=== PATIENT | female | born 1985 | race Caucasian/White ===

== ENCOUNTER 2022-11-02 05:16 | Inpatient (IN) | payer MEDICARE, OTHER ==
[~2022-11-02] VITALS: Ht 165.1 cm; Wt 132.0 kg
[2022-11-02 09:59] LABS: Basophils # (auto) 0.1 10 ^3/uL (0-0.2); Eosinophils # (auto) 0.2 10 ^3/uL (0-0.8); Hematocrit 39.8 % (36.0-46.0); Hemoglobin 12.9 g/dL (12.2-16.2); Lymphocytes # (auto) 1.9 10 ^3/uL (0.4-5.4); Lymphocytes % (auto) 15.4 % (10.0-50.0); Mean Corpuscular Hemoglobin 26.4 pg (28.0-32.0); Mean Corpuscular Hgb Conc. 32.4 g/dL (32.0-36.0); Mean Corpuscular Volume 81.4 fL (80.0-100.0); Monocytes # (auto) 0.8 10 ^3/uL (0-1.3); Monocytes % (auto) 6.2 % (0.0-12.0); Neutrophils # (auto) 9.3 10 ^3/uL (1.6-8.6); Neutrophils % (auto) 75.4 % (37.0-80.0); Nucleated Red Blood Cells % 0.1 %; Red Blood Cells 4.89 10^6/uL (4.0-5.20); Red Cell Distribution Width 15.3 % (11.8-14.3); White Blood Cell 12.3 10^3/uL (4.4-10.8)
[2022-11-02 10:14] LABS: Albumin 3.4 g/dL (3.4-5.0); Calcium 9.1 mg/dL (8.5-10.1); Potassium 3.2 mmol/L (3.5-5.1)
[2022-11-02 10:17] LABS: BUN/Creatinine Ratio 9.2 (10.0-20.0); Bilirubin, Total 0.4 mg/dL (0.2-1.0); Total Protein 7.5 g/dL (6.4-8.2)
[2022-11-02] MEDS: LACTATED RINGER'S 1,000 ML IV SCH ×2 (11:15→22:02)
[2022-11-02] MEDS ORDERED: ACETAMINOPHEN 325 MG TAB PO PRN (11:15)
[2022-11-02] MEDS ORDERED: SODIUM CHLORIDE 0.9% 1,000 ML IV ONE (11:15)
[2022-11-02] MEDS ORDERED: POTASSIUM CHL 20MEQ/100ML 100 ML IV ONE (11:15)
[2022-11-02] MEDS ORDERED: ONDANSETRON HCL 4 MG/2 ML VIAL IV PRN (11:15)
[2022-11-02] MEDS ORDERED: HYDROcodone-ACET 5/325MG TAB PO PRN (11:15)
[2022-11-02 11:33] LABS: Cholesterol 176 mg/dL (< 200)
[2022-11-02 11:36] LABS: HDL Cholesterol 42 mg/dL (40-59); LDL Cholesterol 126 mg/dL (< 100); Triglycerides 77 mg/dL (< 150)
[2022-11-02 11:44] LABS: INR 0.97 (0.9-1.15); Partial Thromboplastin Time 31.8 sec (24.6-33.4)
[2022-11-02] MEDS ORDERED: NICOTINE 7MG/24HR TOPICAL PATCH TD ONE (13:00)
[2022-11-02] MEDS ORDERED: DEXTROSE (50%) 50ML SYRG IV PRN (13:00)
[2022-11-02] MEDS ORDERED: LURA40TA PO (13:07)
[2022-11-02] MEDS ORDERED: SERT25TA14 PO (13:07)
[2022-11-02] MEDS ORDERED: hydrALAZINE HCL 20 MG/ML VL IV PRN (13:15)
[2022-11-02] MEDS: ACCU-CHEK COMFORT CURVE STRIP VI SCH ×2 (18:49→23:55)
[2022-11-02] MEDS: InsuLIN REG 1unit/0.01ml Soln (100units/ml) SC SCH ×2 (18:49→23:55)
[2022-11-02] MEDS: PANTOPRAZOLE 40 MG/10 ML VIAL INJ IV SCH ×2 (18:52→23:25)
[2022-11-02 19:14] LABS: Cholesterol 159 mg/dL (< 200)
[2022-11-02 19:16] LABS: HDL Cholesterol 36 mg/dL (40-59); LDL Cholesterol 119 mg/dL (< 100); Triglycerides 94 mg/dL (< 150)
[2022-11-02] MEDS: MORPHINE SULFATE INJ 2 MG/ml SYRG IV PRN (19:49)
[2022-11-03] MEDS: LACTATED RINGER'S 1,000 ML IV SCH ×3 (03:15→19:15)
[2022-11-03] MEDS: InsuLIN REG 1unit/0.01ml Soln (100units/ml) SC SCH ×3 (06:42→18:00)
[2022-11-03] MEDS: ACCU-CHEK COMFORT CURVE STRIP VI SCH ×3 (06:42→18:16)
[2022-11-03] MEDS ORDERED: MIDAZOLAM HCL 2MG/2ML 2ml VIAL (1mg/ml) ONE (09:43)
[2022-11-03] MEDS ORDERED: PROPOFOL 10 MG/ML 20 ML IV ONE (10:03)
[2022-11-03] MEDS ORDERED: fentaNYL CITRATE 100 MCG/2 ML VL ONE (10:03)
[2022-11-03] MEDS ORDERED: ONDANSETRON HCL 4 MG/2 ML VIAL IV PRN (10:15)
[2022-11-03] MEDS ORDERED: MORPHINE SULFATE INJ 2 MG/ml SYRG IV ONE (10:39)
[2022-11-03 12:55] VITALS: BP 117/73
[2022-11-03 13:59] VITALS: BP 117/73
[2022-11-03] MEDS: SERTRALINE HCL 50 MG TAB PO SCH (14:00)
[2022-11-03] MEDS: PANTOPRAZOLE 40 MG/10 ML VIAL INJ IV SCH ×2 (14:00→23:17)
[2022-11-03] MEDS ORDERED: ASCO500T11 PO (14:03)
[2022-11-03] MEDS: NICOTINE 7MG/24HR TOPICAL PATCH TD SCH (14:03)
[2022-11-03] MEDS ORDERED: METF-370 PO (14:03)
[2022-11-03] MEDS ORDERED: LORA1TAB23 PO (14:03)
[2022-11-03] MEDS ORDERED: AMLO-489 PO (14:03)
[2022-11-03] MEDS: LURASIDONE HYDROCHLORIDE 40 MG PO SCH (15:08)
[2022-11-03] MEDS: MORPHINE SULFATE INJ 2 MG/ml SYRG IV PRN ×2 (15:19→20:10)
[2022-11-03 16:00] VITALS: BP 114/54
[2022-11-03 22:00] VITALS: BP 140/82
[2022-11-04] MEDS: LACTATED RINGER'S 1,000 ML IV SCH (03:15)
[2022-11-04] MEDS: MORPHINE SULFATE INJ 2 MG/ml SYRG IV PRN (04:17)
[2022-11-04 05:00] VITALS: BP 135/76
[2022-11-04] MEDS: ACCU-CHEK COMFORT CURVE STRIP VI SCH ×4 (06:00→17:41)
[2022-11-04] MEDS: InsuLIN REG 1unit/0.01ml Soln (100units/ml) SC SCH ×4 (06:00→17:41)
[2022-11-04 09:00] VITALS: BP 150/88
[2022-11-04] MEDS: NICOTINE 7MG/24HR TOPICAL PATCH TD SCH (10:42)
[2022-11-04] MEDS: PANTOPRAZOLE 40 MG/10 ML VIAL INJ IV SCH ×2 (10:45→22:11)
[2022-11-04] MEDS: SERTRALINE HCL 50 MG TAB PO SCH (10:45)
[2022-11-04] MEDS: LURASIDONE HYDROCHLORIDE 40 MG PO SCH (10:46)
[2022-11-04] MEDS: diphenhdrAMINE HCL 50 MG/1 ML VL IV PRN ×2 (10:50→17:32)
[2022-11-04] MEDS: MORPHINE SULFATE 4 MG/ML SYR/VIAL IV PRN ×3 (10:52→22:12)
[2022-11-04 13:00] VITALS: BP 145/91
[2022-11-04 17:00] VITALS: BP_SYST 121; BP_SYST 150; BP_DIAS 76; BP_DIAS 88
[2022-11-04 22:00] VITALS: BP 139/71
[2022-11-05] MEDS: ACCU-CHEK COMFORT CURVE STRIP VI SCH ×4 (00:11→17:36)
[2022-11-05] MEDS: diphenhdrAMINE HCL 50 MG/1 ML VL IV PRN ×4 (00:12→18:12)
[2022-11-05 05:00] VITALS: BP 135/69
[2022-11-05] MEDS: MORPHINE SULFATE 4 MG/ML SYR/VIAL IV PRN ×5 (05:00→23:16)
[2022-11-05] MEDS: InsuLIN REG 1unit/0.01ml Soln (100units/ml) SC SCH ×4 (05:08→17:36)
[2022-11-05 09:00] VITALS: BP 124/77
[2022-11-05] MEDS: PANTOPRAZOLE 40 MG/10 ML VIAL INJ IV SCH ×2 (09:19→23:14)
[2022-11-05] MEDS: SERTRALINE HCL 50 MG TAB PO SCH (09:25)
[2022-11-05] MEDS: NICOTINE 7MG/24HR TOPICAL PATCH TD SCH (09:26)
[2022-11-05] MEDS: LURASIDONE HYDROCHLORIDE 40 MG PO SCH (09:26)
[2022-11-05 13:00] VITALS: BP 118/68
[2022-11-05 17:00] VITALS: BP 126/68
[2022-11-05] MEDS: DOCUSATE SOD 100 MG CAP PO SCH (23:14)
[2022-11-06] MEDS: ACCU-CHEK COMFORT CURVE STRIP VI SCH ×4 (01:06→18:10)
[2022-11-06] MEDS: diphenhdrAMINE HCL 50 MG/1 ML VL IV PRN ×4 (01:07→23:17)
[2022-11-06] MEDS: InsuLIN REG 1unit/0.01ml Soln (100units/ml) SC SCH ×4 (06:00→18:00)
[2022-11-06 08:37] VITALS: BP 138/69
[2022-11-06] MEDS: MORPHINE SULFATE 4 MG/ML SYR/VIAL IV PRN (08:52)
[2022-11-06] MEDS: DOCUSATE SOD 100 MG CAP PO SCH (08:53)
[2022-11-06] MEDS: SERTRALINE HCL 50 MG TAB PO SCH (08:53)
[2022-11-06] MEDS: NICOTINE 7MG/24HR TOPICAL PATCH TD SCH (08:53)
[2022-11-06] MEDS: PANTOPRAZOLE 40 MG/10 ML VIAL INJ IV SCH (08:53)
[2022-11-06] MEDS: LURASIDONE HYDROCHLORIDE 40 MG PO SCH (10:00)
[2022-11-06 12:31] VITALS: BP 137/73
[2022-11-06 17:00] VITALS: BP 142/79
[2022-11-06 22:00] VITALS: BP 142/75
[2022-11-07] MEDS: PANTOPRAZOLE 40 MG/10 ML VIAL INJ IV SCH ×3 (00:16→23:09)
[2022-11-07] MEDS: DOCUSATE SOD 100 MG CAP PO SCH ×3 (00:17→22:00)
[2022-11-07] MEDS: ACCU-CHEK COMFORT CURVE STRIP VI SCH ×4 (00:18→19:09)
[2022-11-07 05:00] VITALS: BP 135/76
[2022-11-07] MEDS: InsuLIN REG 1unit/0.01ml Soln (100units/ml) SC SCH ×4 (06:00→19:09)
[2022-11-07] MEDS: NICOTINE 7MG/24HR TOPICAL PATCH TD SCH (10:00)
[2022-11-07] MEDS: LURASIDONE HYDROCHLORIDE 40 MG PO SCH (10:00)
[2022-11-07] MEDS: SERTRALINE HCL 50 MG TAB PO SCH (10:34)
[2022-11-07] MEDS: diphenhdrAMINE HCL 50 MG/1 ML VL IV PRN ×3 (11:00→23:11)
[2022-11-07 17:33] VITALS: BP 120/84
[2022-11-07 21:56] VITALS: BP 144/68
[2022-11-08] MEDS: ACCU-CHEK COMFORT CURVE STRIP VI SCH ×4 (06:00→18:23)
[2022-11-08] MEDS: InsuLIN REG 1unit/0.01ml Soln (100units/ml) SC SCH ×4 (06:00→18:00)
[2022-11-08] MEDS: diphenhdrAMINE HCL 50 MG/1 ML VL IV PRN ×3 (06:54→21:18)
[2022-11-08 08:56] VITALS: BP 124/72
[2022-11-08] MEDS: DOCUSATE SOD 100 MG CAP PO SCH ×3 (09:37→21:17)
[2022-11-08] MEDS: PANTOPRAZOLE 40 MG/10 ML VIAL INJ IV SCH ×2 (09:37→21:17)
[2022-11-08] MEDS: SERTRALINE HCL 50 MG TAB PO SCH ×2 (09:38→10:00)
[2022-11-08] MEDS: NICOTINE 7MG/24HR TOPICAL PATCH TD SCH ×2 (09:38→10:00)
[2022-11-08] MEDS: LURASIDONE HYDROCHLORIDE 40 MG PO SCH (10:00)
[2022-11-08 14:00] VITALS: BP 126/71
[2022-11-08] MEDS ORDERED: LORazepam 2MG/ML-1ML VIAL IV ONE (14:15)
[2022-11-08] MEDS: MORPHINE SULFATE 4 MG/ML SYR/VIAL IV PRN ×2 (16:39→21:19)
[2022-11-08 17:00] VITALS: BP 142/77
[2022-11-08 22:00] VITALS: BP 135/97
[2022-11-09] MEDS: ACCU-CHEK COMFORT CURVE STRIP VI SCH ×4 (00:21→17:48)
[2022-11-09] MEDS: MORPHINE SULFATE 4 MG/ML SYR/VIAL IV PRN ×2 (01:59→08:24)
[2022-11-09] MEDS: diphenhdrAMINE HCL 50 MG/1 ML VL IV PRN ×2 (03:54→15:05)
[2022-11-09 05:00] VITALS: BP 117/74
[2022-11-09] MEDS: InsuLIN REG 1unit/0.01ml Soln (100units/ml) SC SCH ×4 (06:00→17:49)
[2022-11-09 09:00] VITALS: BP 119/65
[2022-11-09] MEDS: LURASIDONE HYDROCHLORIDE 40 MG PO SCH (10:00)
[2022-11-09] MEDS: NICOTINE 7MG/24HR TOPICAL PATCH TD SCH (10:00)
[2022-11-09] MEDS: LORazepam 2MG/ML-1ML VIAL IV SCH ×2 (10:30→22:03)
[2022-11-09] MEDS: SERTRALINE HCL 50 MG TAB PO SCH (10:31)
[2022-11-09] MEDS: DOCUSATE SOD 100 MG CAP PO SCH ×2 (10:31→22:03)
[2022-11-09] MEDS: PANTOPRAZOLE 40 MG/10 ML VIAL INJ IV SCH ×2 (10:31→22:03)
[2022-11-09 13:00] VITALS: BP 124/75
[2022-11-09 17:00] VITALS: BP 128/78
[2022-11-09 21:36] VITALS: BP 127/68
[2022-11-10 05:00] VITALS: BP 145/85
[2022-11-10] MEDS: InsuLIN REG 1unit/0.01ml Soln (100units/ml) SC SCH ×5 (06:00→23:52)
[2022-11-10] MEDS: ACCU-CHEK COMFORT CURVE STRIP VI SCH ×5 (06:04→23:45)
[2022-11-10] MEDS: diphenhdrAMINE HCL 50 MG/1 ML VL IV PRN (06:24)
[2022-11-10 08:50] VITALS: BP 128/75
[2022-11-10] MEDS: NICOTINE 7MG/24HR TOPICAL PATCH TD SCH (10:00)
[2022-11-10] MEDS: LURASIDONE HYDROCHLORIDE 40 MG PO SCH (10:00)
[2022-11-10] MEDS ORDERED: diphenhdrAMINE HCL 50 MG/1 ML VL IV PRN (10:15)
[2022-11-10] MEDS: SERTRALINE HCL 50 MG TAB PO SCH (10:27)
[2022-11-10] MEDS: DOCUSATE SOD 100 MG CAP PO SCH ×2 (10:27→20:51)
[2022-11-10] MEDS: LORazepam 2MG/ML-1ML VIAL IV SCH ×2 (10:27→20:53)
[2022-11-10] MEDS: PANTOPRAZOLE 40 MG/10 ML VIAL INJ IV SCH ×2 (10:27→20:52)
[2022-11-10 22:00] VITALS: BP 143/99
[2022-11-11] MEDS: InsuLIN REG 1unit/0.01ml Soln (100units/ml) SC SCH ×4 (05:47→18:00)
[2022-11-11] MEDS: ACCU-CHEK COMFORT CURVE STRIP VI SCH ×3 (05:47→18:00)
[2022-11-11] MEDS: LURASIDONE HYDROCHLORIDE 40 MG PO SCH (10:00)
[2022-11-11] MEDS: NICOTINE 7MG/24HR TOPICAL PATCH TD SCH (10:00)
[2022-11-11] MEDS: DOCUSATE SOD 100 MG CAP PO SCH ×2 (10:00→21:37)
[2022-11-11] MEDS: SERTRALINE HCL 50 MG TAB PO SCH (10:00)
[2022-11-11] MEDS: PANTOPRAZOLE 40 MG/10 ML VIAL INJ IV SCH ×2 (10:00→21:37)
[2022-11-11] MEDS: LORazepam 2MG/ML-1ML VIAL IV SCH ×2 (10:24→21:38)
[2022-11-12] MEDS: ACCU-CHEK COMFORT CURVE STRIP VI SCH ×4 (00:59→18:01)
[2022-11-12] MEDS: InsuLIN REG 1unit/0.01ml Soln (100units/ml) SC SCH ×4 (06:00→18:07)
[2022-11-12] MEDS: NICOTINE 7MG/24HR TOPICAL PATCH TD SCH (10:00)
[2022-11-12] MEDS: LURASIDONE HYDROCHLORIDE 40 MG PO SCH (10:00)
[2022-11-12] MEDS: DOCUSATE SOD 100 MG CAP PO SCH ×2 (11:04→22:00)
[2022-11-12] MEDS: SERTRALINE HCL 50 MG TAB PO SCH (11:04)
[2022-11-12] MEDS: LORazepam 2MG/ML-1ML VIAL IV SCH (11:05)
[2022-11-12] MEDS: PANTOPRAZOLE 40 MG/10 ML VIAL INJ IV SCH (11:05)
[2022-11-12 20:00] VITALS: BP 134/86
[2022-11-13] MEDS: PANTOPRAZOLE 40 MG/10 ML VIAL INJ IV SCH ×2 (00:38→10:13)
[2022-11-13] MEDS: LORazepam 2MG/ML-1ML VIAL IV SCH ×3 (00:38→22:00)
[2022-11-13] MEDS: ACCU-CHEK COMFORT CURVE STRIP VI SCH ×5 (00:38→23:58)
[2022-11-13] MEDS: InsuLIN REG 1unit/0.01ml Soln (100units/ml) SC SCH ×4 (06:00→17:46)
[2022-11-13] MEDS: SERTRALINE HCL 50 MG TAB PO SCH (10:00)
[2022-11-13] MEDS: DOCUSATE SOD 100 MG CAP PO SCH ×2 (10:00→22:00)
[2022-11-13] MEDS: LURASIDONE HYDROCHLORIDE 40 MG PO SCH (10:00)
[2022-11-13] MEDS: NICOTINE 7MG/24HR TOPICAL PATCH TD SCH (10:00)
[2022-11-13 22:00] VITALS: BP 135/94
[2022-11-14] MEDS: PANTOPRAZOLE 40 MG/10 ML VIAL INJ IV SCH ×3 (02:56→21:31)
[2022-11-14 05:00] VITALS: BP 115/69
[2022-11-14] MEDS: InsuLIN REG 1unit/0.01ml Soln (100units/ml) SC SCH ×4 (06:00→17:54)
[2022-11-14] MEDS: ACCU-CHEK COMFORT CURVE STRIP VI SCH ×3 (06:30→17:54)
[2022-11-14 09:00] VITALS: BP 109/59
[2022-11-14] MEDS: LORazepam 2MG/ML-1ML VIAL IV SCH ×2 (09:54→21:31)
[2022-11-14] MEDS: SERTRALINE HCL 50 MG TAB PO SCH (09:56)
[2022-11-14] MEDS: DOCUSATE SOD 100 MG CAP PO SCH ×2 (09:56→21:40)
[2022-11-14] MEDS: NICOTINE 7MG/24HR TOPICAL PATCH TD SCH (09:56)
[2022-11-14] MEDS: LURASIDONE HYDROCHLORIDE 40 MG PO SCH (10:00)
[2022-11-14 22:00] VITALS: BP 122/91
[2022-11-14] MEDS ORDERED: diphenhdrAMINE HCL 25 MG CAP PO ONE (22:00)
[2022-11-15] MEDS: InsuLIN REG 1unit/0.01ml Soln (100units/ml) SC SCH ×5 (01:46→20:59)
[2022-11-15] MEDS: ACCU-CHEK COMFORT CURVE STRIP VI SCH ×5 (01:46→20:58)
[2022-11-15 05:00] VITALS: BP 128/85
[2022-11-15] MEDS: NICOTINE 7MG/24HR TOPICAL PATCH TD SCH (10:00)
[2022-11-15] MEDS: LURASIDONE HYDROCHLORIDE 40 MG PO SCH (10:00)
[2022-11-15] MEDS: PANTOPRAZOLE 40 MG/10 ML VIAL INJ IV SCH ×2 (11:58→20:57)
[2022-11-15] MEDS: LORazepam 2MG/ML-1ML VIAL IV SCH ×2 (12:01→20:58)
[2022-11-15] MEDS: DOCUSATE SOD 100 MG CAP PO SCH ×2 (12:01→20:58)
[2022-11-15] MEDS: SERTRALINE HCL 50 MG TAB PO SCH (12:02)
[2022-11-15 22:00] VITALS: BP 136/94
[2022-11-16] MEDS: ACCU-CHEK COMFORT CURVE STRIP VI SCH ×3 (06:00→18:00)
[2022-11-16] MEDS: InsuLIN REG 1unit/0.01ml Soln (100units/ml) SC SCH ×3 (06:00→18:00)
[2022-11-16] MEDS ORDERED: MORPHINE SULFATE INJ 2 MG/ml SYRG IV ONE (09:00)
[2022-11-16] MEDS: DOCUSATE SOD 100 MG CAP PO SCH ×2 (10:00→22:00)
[2022-11-16] MEDS: NICOTINE 7MG/24HR TOPICAL PATCH TD SCH (10:00)
[2022-11-16] MEDS: LURASIDONE HYDROCHLORIDE 40 MG PO SCH (10:00)
[2022-11-16] MEDS: SERTRALINE HCL 50 MG TAB PO SCH (10:00)
[2022-11-16] MEDS: PANTOPRAZOLE 40 MG/10 ML VIAL INJ IV SCH ×2 (10:03→22:05)
[2022-11-16] MEDS: LORazepam 2MG/ML-1ML VIAL IV SCH ×2 (10:03→22:05)
[2022-11-16 20:00] VITALS: BP 136/92
[2022-11-16 22:00] VITALS: BP 136/93
[2022-11-17 02:23] LABS: INR 1.02 (0.9-1.15)
[2022-11-17 04:44] VITALS: BP 138/80
[2022-11-17] MEDS: ACCU-CHEK COMFORT CURVE STRIP VI SCH ×5 (06:00→23:55)
[2022-11-17] MEDS: InsuLIN REG 1unit/0.01ml Soln (100units/ml) SC SCH ×5 (06:00→23:55)
[2022-11-17] MEDS ORDERED: LIDOCAINE VISCOUS 2% 15ML UD ONE (08:28)
[2022-11-17 09:18] LABS: Basophils # (auto) 0.1 10 ^3/uL (0-0.2); Basophils % (auto) 1.2 % (0.0-2.0); Eosinophils # (auto) 0.2 10 ^3/uL (0-0.8); Mean Corpuscular Volume 82.5 fL (80.0-100.0)
[2022-11-17 09:20] LABS: Eosinophils % (auto) 1.9 % (0.0-7.0); Hematocrit 39.7 % (36.0-46.0); Hemoglobin 12.8 g/dL (12.2-16.2); Mean Corpuscular Hemoglobin 26.6 pg (28.0-32.0); Mean Corpuscular Hgb Conc. 32.3 g/dL (32.0-36.0); Monocytes # (auto) 0.8 10 ^3/uL (0-1.3); Monocytes % (auto) 8.1 % (0.0-12.0); Neutrophils # (auto) 6.4 10 ^3/uL (1.6-8.6); Neutrophils % (auto) 67.8 % (37.0-80.0); Nucleated Red Blood Cells % 0.1 %; Red Blood Cells 4.81 10^6/uL (4.0-5.20); Red Cell Distribution Width 15.1 % (11.8-14.3); White Blood Cell 9.4 10^3/uL (4.4-10.8)
[2022-11-17] MEDS ORDERED: fentaNYL CITRATE 100 MCG/2 ML VL ONE (09:55)
[2022-11-17] MEDS ORDERED: MIDAZOLAM HCL 2MG/2ML 2ml VIAL (1mg/ml) ONE (09:55)
[2022-11-17] MEDS ORDERED: PROPOFOL 10 MG/ML 20 ML IV ONE (09:56)
[2022-11-17] MEDS ORDERED: DexAMETHasone SOD PHOS 10MG/1ML VIAL INJ ONE (09:56)
[2022-11-17] MEDS: DOCUSATE SOD 100 MG CAP PO SCH ×2 (10:00→21:38)
[2022-11-17] MEDS: LURASIDONE HYDROCHLORIDE 40 MG PO SCH (10:00)
[2022-11-17] MEDS: NICOTINE 7MG/24HR TOPICAL PATCH TD SCH (10:00)
[2022-11-17] MEDS: SERTRALINE HCL 50 MG TAB PO SCH (10:00)
[2022-11-17 10:02] LABS: Calcium 9.1 mg/dL (8.5-10.1); Potassium 3.7 mmol/L (3.5-5.1)
[2022-11-17 10:05] LABS: BUN/Creatinine Ratio 11.5 (10.0-20.0); Bilirubin, Total 0.4 mg/dL (0.2-1.0); Total Protein 6.5 g/dL (6.4-8.2)
[2022-11-17] MEDS: LORazepam 2MG/ML-1ML VIAL IV SCH ×2 (11:58→21:37)
[2022-11-17] MEDS: PANTOPRAZOLE 40 MG/10 ML VIAL INJ IV SCH ×2 (11:58→21:37)
[2022-11-17 20:00] VITALS: BP 148/91
[2022-11-17 21:55] VITALS: BP 121/46
[2022-11-17 22:00] VITALS: BP 154/85
[2022-11-18] MEDS: ACCU-CHEK COMFORT CURVE STRIP VI SCH ×4 (06:00→23:57)
[2022-11-18] MEDS: InsuLIN REG 1unit/0.01ml Soln (100units/ml) SC SCH ×4 (06:00→23:57)
[2022-11-18] MEDS: LURASIDONE HYDROCHLORIDE 40 MG PO SCH (09:54)
[2022-11-18] MEDS: LORazepam 2MG/ML-1ML VIAL IV SCH (09:54)
[2022-11-18] MEDS: PANTOPRAZOLE 40 MG/10 ML VIAL INJ IV SCH (09:54)
[2022-11-18] MEDS: SERTRALINE HCL 50 MG TAB PO SCH (09:55)
[2022-11-18] MEDS: DOCUSATE SOD 100 MG CAP PO SCH ×2 (09:55→22:00)
[2022-11-18] MEDS: NICOTINE 7MG/24HR TOPICAL PATCH TD SCH (09:55)
[2022-11-18] MEDS: PANTOPRAZOLE 40 MG TAB PO SCH (22:00)
[2022-11-18] MEDS: LORazepam 0.5 MG TAB PO SCH (23:54)
[2022-11-19] MEDS: ACCU-CHEK COMFORT CURVE STRIP VI SCH ×2 (06:00→12:00)
[2022-11-19] MEDS: InsuLIN REG 1unit/0.01ml Soln (100units/ml) SC SCH ×2 (06:00→12:00)
[2022-11-19] MEDS: NICOTINE 7MG/24HR TOPICAL PATCH TD SCH (10:00)
[2022-11-19] MEDS: SERTRALINE HCL 50 MG TAB PO SCH (10:00)
[2022-11-19] MEDS: PANTOPRAZOLE 40 MG TAB PO SCH (10:00)
[2022-11-19] MEDS: LURASIDONE HYDROCHLORIDE 40 MG PO SCH (10:00)
[2022-11-19] MEDS: LORazepam 0.5 MG TAB PO SCH (10:00)
[2022-11-19] MEDS: DOCUSATE SOD 100 MG CAP PO SCH (10:00)
[2022-11-19] MEDS ORDERED: NICOTINE 21MG/24 HR TOPICAL PATCH TD ONE (15:00)
[2022-11-20] MEDS ORDERED: NICOTINE 21MG/24 HR TOPICAL PATCH TD SCH (10:00)
== END 2022-11-19 16:10 | DRG 394 ==
LOC: EDBD 05:16 → ER 05:16 → OVERFLOW 11:14 → CENTRAL 11-03 12:11
PROVIDERS: ADMIT Registered Nurse; ATTEND Internal Medicine Geriatric Medicine
PROC: 0DB98ZX Excision of Duodenum, Via Natural or Artificial Opening Endoscopic, Diagnostic (ICD-10-PCS; 2022-11-03)
PROC: 0DC78ZZ Extirpation of Matter from Stomach, Pylorus, Via Natural or Artificial Opening Endoscopic (ICD-10-PCS; principal; 2022-11-03 09:42)
PROC: 0DB68ZX Excision of Stomach, Via Natural or Artificial Opening Endoscopic, Diagnostic (ICD-10-PCS; 2022-11-17)
PROC: 0DJ08ZZ Inspection of Upper Intestinal Tract, Via Natural or Artificial Opening Endoscopic (ICD-10-PCS; 2022-11-17)
DX: T18.2XXA Foreign body in stomach, initial encounter (principal); Z68.41 Body mass index [BMI] 40.0-44.9, adult; K29.70 Gastritis, unspecified, without bleeding; K44.9 Diaphragmatic hernia without obstruction or gangrene; E11.9 Type 2 diabetes mellitus without complications; E66.01 Morbid (severe) obesity due to excess calories; I10 Essential (primary) hypertension; F41.9 Anxiety disorder, unspecified; E78.5 Hyperlipidemia, unspecified; F17.210 Nicotine dependence, cigarettes, uncomplicated; F32.A Depression, unspecified; F43.10 Post-traumatic stress disorder, unspecified; X58.XXXA Exposure to other specified factors, initial encounter; Z82.3 Family history of stroke; Z91.199 Patient's noncompliance with other medical treatment and regimen due to unspecified reason; Y93.89 Activity, other specified; Y92.89 Other specified places as the place of occurrence of the external cause; Y99.8 Other external cause status
CPT/HCPCS: 36415; 74018; 74176; 80053; 80061; 82962; 83036; 83690; 84443; 84702; 85025; 85610; 85730; 87081; 87426; 93005; C9113; G0378; J1100; J1815; J2250; J2704; J3480